=== PATIENT | male | born 1980 | race Caucasian/White ===

== ENCOUNTER 2018-04-16 21:30 | Emergency (ER) | payer BC ==
--- NOTE | 2018-04-16 21:38 | PDOC ---
History of Present Illness - General History Source: Patient Exam Limitations: No Limitations - History of Present Illness Initial Comments: 04/16/18 21:58 The patient is a 37 year old male with past medical history of GERD presents to the emergency department with nausea, vomiting and headache. The patient reports he was at work yesterday, around late morning he started to feel nauseous, reports having a cup of soup at 5:00 PM. An hour later the patient started to vomit. The patient reports since then hes been vomiting constantly, reports drinking pedialyte and eating cracker, which he would vomit within the hour. The patient reports taking zofran but states he was unable to keep it down. The patient reports last episode of nonbloody nonbilious clear vomiting was about an hour prior to the ED. The patient reports associated symptoms of headache and diaphoresis. The patient reports about 5-6 years ago he had food poisoning which was treated. 3 year ago the patient had an upper endoscopy done by Dr. Elise and was diagnosed with GERD. Patient denies taking any medication , denies any further symptoms of GERD, after losing 30 pounds. Denies diarrhea or constipation. Denies fever, chills or coughing. Denies chest pain, sob. Denies any sick contact or recent travel. Denies having any unusual food out of the normal routine. Allergies: NKDA, seasonal allergies. Social history: None reported Dr. Kiara Castaneda <Apple Riley - Last Filed: 04/16/18 22:07> <Tracey Tejeda - Last Filed: 04/17/18 00:55> - General Chief Complaint: Nausea/Vomiting Stated Complaint: NAUSEA/VOMITING Past History <Apple Riley - Last Filed: 04/16/18 22:07> - Past Medical History Anemia: No Asthma: No Cancer: No Cardiac Disorders: No CVA: No COPD: No CHF: No Dementia: No Diabetes: No GI Disorders: Yes (DYSPHAGIA) Disorders: No HTN: No Hypercholesterolemia: No Liver Disease: No Seizures: No Thyroid Disease: No - Surgical History Abdominal Surgery: No Appendectomy: No Cardiac Surgery: No Cholecystectomy: No Lung Surgery: No Neurologic Surgery: No Orthopedic Surgery: Yes (FX LEFT ANKLE WITH SCREWS AND PLATE) - Suicide/Smoking/Psychosocial Hx Smoking History: Never smoked Have you smoked in the past 12 months: No Hx Alcohol Use: No Drug/Substance Use Hx: No Substance Use Type: None Hx Substance Use Treatment: No <Tracey Tejeda Yoli - Last Filed: 04/17/18 00:55> - Past Medical History Allergies/Adverse Reactions: Allergies Allergy/AdvReac Type Severity Reaction Status Date / Time No Known Allergies Allergy Verified 01/22/15 14:21 Home Medications: Ambulatory Orders NK [No Known Home Medication] 04/16/18 Review of Systems - Review of Systems Able to Perform ROS?: Yes Comments:: 04/16/18 22:03 CONSTITUTIONAL: (+) unusual sweating. Absent: fever, no chills, no fatigue EYES: Absent: visual changes ENT: Absent: ear pain, no sore throat CARDIOVASCULAR: Absent: chest pain, no palpitations RESPIRATORY: Absent: cough, no SOB GI: (+) Nausea and multiple episodes of vomiting. Absent: abdominal pain, no constipation, no diarrhea GENITOURINARY: Absent: dysuria, no frequency, no hematuria MUSKULOSKELETAL: Absent: back pain, no arthralgia, no myalgia SKIN: Absent: rash NEURO: (+) headache <Apple Riley - Last Filed: 04/16/18 22:07> *Physical Exam - Vital Signs Last Vital Signs Temp Pulse Resp BP Pulse Ox 98.7 F 94 H 16 137/92 97 04/16/18 21:33 04/16/18 21:33 04/16/18 21:33 04/16/18 21:33 04/16/18 21:33 - Physical Exam Comments: 04/16/18 22:03 GENERAL: The patient is awake, alert, and fully oriented, in no acute distress. HEAD: Normal with no signs of trauma. EYES: Pupils equal, round and reactive to light, extraocular movements intact, sclera anicteric, conjunctiva clear with no pallor. ENT: Ears normal, nares patent, oropharynx clear without exudates. Dry mucous membranes NECK: Normal range of motion, supple without lymphadenopathy, JVD, or masses. LUNGS: Breath sounds equal, clear to auscultation bilaterally. No wheeze/ crackles. HEART: Regular rate and rhythm, normal S1 and S2 without murmur or rub. ABDOMEN: (+) Minimal epigastric tenderness. Soft/nondistended. BS wnl. No guarding or rebound. No palpable masses. No hepatosplenomegaly. EXTREMITIES: Normal range of motion, no edema. No clubbing or cyanosis. No cords, erythema, or tenderness. NEUROLOGICAL: Cranial nerves II through XII grossly intact. Normal speech, normal gait. PSYCH: Normal mood, normal affect. SKIN: Mildly diaphoretic. Warm, Dry, normal turgor, no rashes or lesions noted. 04/16/18 22:08 <Apple Riley - Last Filed: 04/16/18 22:07> ED Treatment Course - LABORATORY CBC & Chemistry Diagram: 04/16/18 21:51 04/16/18 21:51 - Medications Given in the ED: ED Medications Discontinued Medications Generic Name Dose Route Start Last Admin Trade Name Freq PRN Reason Stop Dose Admin Ondansetron HCl 4 mg 04/16/18 21:49 04/16/18 21:50 Zofran Injection IVPUSH 04/16/18 21:50 4 mg ONCE ONE Administration <Apple Riley - Last Filed: 04/16/18 22:07> - LABORATORY CBC & Chemistry Diagram: 04/16/18 21:51 04/16/18 21:51 <Tracey Tejeda - Last Filed: 04/17/18 00:55> Medical Decision Making - Medical Decision Making Laboratory evaluation notable for evidence of hemoconcentration/dehydration with hemoglobin/hematocrit markedly increased and prerenal azotemia (BUN 19/ creatinine 1.0). Patient received 2 L of normal saline IV total along with 4 mg of Zofran IV. He also received 30 mg Toradol IV for headache Patient's nausea resolved and headache pain improved. Patient drank approximately 6 ounces of water without nausea/vomiting. Patient was discharged with instructions to maintain clear liquid diet and advance to solid foods very cautiously. The patient already has Zofran ODT at home which he can use as needed for recurrent nausea. He should return to the emergency room if he has recurrent vomiting or develops fever/severe abdominal pain. He is been advised to follow-up with his general doctor within the next 5 days, especially in light of his markedly elevated hemoglobin/hematocrit. Was explained to the patient that this could be totally caused by his loss of fluids, however polycythemia should be ruled out by follow-up laboratory evaluation. <Tracey Tejeda - Last Filed: 04/17/18 00:55> *DC/Admit/Observation/Transfer <Apple Riley - Last Filed: 04/16/18 22:07> <Tracey Tejeda - Last Filed: 04/17/18 00:55> Diagnosis at time of Disposition: Gastroenteritis - Discharge Dispostion Disposition: HOME Condition at time of disposition: Stable - Referrals Referrals: Kiara Castaneda MD [Primary Care Provider] - - Patient Instructions Printed Discharge Instructions: DI for Vomiting -- Adult Additional Instructions: clear liquids, advance diet cautiously Can use Zofran ODT as needed for recurrent nausea Return to ER if you have persistent vomiting/fever/abdominal pain followup with Dr Castaneda within 3-4 days - Post Discharge Activity
[2018-04-16 21:39] VITALS: BP 137/92; PULSE 94; TEMP 98.7; BMI 39.3
[2018-04-16] MEDS ORDERED: ONDANSETRON 4 MG/2 ML VIAL IVPUSH ONE (21:49)
[2018-04-16] MEDS ORDERED: ONDANSETRON 4 MG/2 ML VIAL ONE (21:49)
[2018-04-16 22:02] LABS: EOS % 0.8 % (0-4.5)
[2018-04-16 22:09] LABS: BASO % 0.5 % (0-2.0); HEMATOCRIT 58.4 % (35.4-49); LYMPH % 17.1 % (8-40); MCHC 34.2 g/dl (32.0-35.9); MEAN PLT VOLUME 9.3 fl (7.5-11.1); MONO % 4.7 % (3.8-10.2); NEUT % 76.9 % (42.8-82.8); PLATELET COUNT 248 K/MM3 (134-434); RBC 6.87 M/mm3 (4.00-5.60); RDW 12.1 % (11.9-15.9)
[2018-04-16] MEDS ORDERED: KETOROLAC TROMETHAMINE 30 MG/1 ML VIAL IVPUSH ONE (22:15)
[2018-04-16 22:18] LABS: ALBUMIN 5.1 g/dl (3.5-5.0); ALK PHOS 42 U/L (32-92); ANION GAP 5 (8-16); BILIRUBIN,TOTAL 3.3 mg/dl (0.2-1.0); BLOOD UREA NITROGEN 19 mg/dl (7-18); CHLORIDE 106 mmol/L (98-107); CO2 24 mmol/L (22-28); GLUCOSE,RANDOM 112 mg/dl (74-106); SGOT/AST 19 U/L (10-42); SGPT/ALT 24 U/L (10-40); SODIUM 135 mmol/L (136-145); TOT PROT 8.3 g/dl (6.4-8.3)
[2018-04-16] MEDS ORDERED: KETOROLAC TROMETHAMINE 30 MG/1 ML VIAL ONE (22:18)
[2018-04-16] MEDS ORDERED: SODIUM CHLORIDE 1,000 ML IV STA (22:44)
[2018-04-16 23:07] LABS: LIPASE 186 U/L (73-393)
== END 2018-04-16 23:40 | disposition home or self-care (01) ==
LOC: FER 21:30
PROC: 3E0333Z Introduction of Anti-inflammatory into Peripheral Vein, Percutaneous Approach (ICD-10-PCS; principal; 2018-04-16)
PROC: 3E033GC Introduction of Other Therapeutic Substance into Peripheral Vein, Percutaneous Approach (ICD-10-PCS; 2018-04-16)
PROC: 3E0337Z Introduction of Electrolytic and Water Balance Substance into Peripheral Vein, Percutaneous Approach (ICD-10-PCS; 2018-04-16)
DX: K52.9 Noninfective gastroenteritis and colitis, unspecified (principal)
CPT/HCPCS: 36415; 80053; 83690; 85025; 99283-25; J7030

== ENCOUNTER 2020-06-25 22:51 | Emergency (ER) | payer BC, OTHER ==
[2020-06-25 22:56] VITALS: BP 134/92; PULSE 89; TEMP 98.5; BMI 38.0
--- NOTE | 2020-06-25 23:16 | PDOC ---
Documentation entered by Apple Riley SCRIBE, acting as scribe for Sheila Harding MD. Sheila Harding MD: This documentation has been prepared by the cecilyibe, Apple Riley SCRIBE, under my direction and personally reviewed by me in its entirety. I confirm that the documentation accurately reflects all work, treatment, procedures, and medical decision making performed by me. History of Present Illness - General Chief Complaint: Laceration Stated Complaint: LACERATION Time Seen by Provider: 06/25/20 22:52 History Source: Patient Exam Limitations: No Limitations - History of Present Illness Initial Comments: 06/25/20 22:57 The patient is a 40-year-old male who presents to the emergency department with a right-hand laceration. The patient reports he was installing new cameras at work, he went to grab a stainless steel band with sharp corners when he sustained a laceration to the right pinky. The patient reports his last tetanus was within 5 years. 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 MEDICATIONS: reviewed ALLERGIES: As per nursing notes PCP: Dr. Meghan Maurice. Review of system: General: No fevers or chills, no weakness, no weight loss HEENT: No change in vision. No sore throat. No ear pain Cardiovascular: No chest pain or shortness of breath Respiratory: No cough, or wheezing. Gastrointestinal: no nausea, vomiting, diarrhea or constipation, No rectal bleeding Genitourinary: No dysuria, hematuria, or frequency Musculoskeletal: No joint or muscle pain or swelling Neurologic: No headache, vertigo, dizziness or loss of consciousness Psychiatric: nor depression Skin: +laceration to right pinky. No rashes or easy bruising Endocrine: no increased thirst or abnormal weight change Allergic: no skin or latex allergy All other systems reviewed and normal Physical exam: GENERAL: The patient is awake, alert, and fully oriented, in no acute distress. HEAD: Normal with no signs of trauma. EYES: Pupils equal, round and reactive to light, extraocular movements intact, sclera anicteric, conjunctiva clear. EXTREMITIES: Normal range of motion, no edema. NEUROLOGICAL: Normal speech, normal gait. PSYCH: Normal mood, normal affect. SKIN: +Right pinky: one cm laceration to the palmar aspect of the distal phalanx of the right pinkly, actively bleeding. There is a second superficial laceration/abrasion of the lateral surface of the same finger with no bleeding. warm, Dry, normal turgor, no rashes or lesions noted. 06/25/20 23:10 Procedure note: Laceration repair: Laceration was anesthetized with 1% lidocaine no epinephrine via local infiltration Laceration was sutured closed with a total of 4 sutures of 5-0 Ethilon patient tolerated well Negative superficial laceration was closed with Dermabond patient tolerated well. Patient's tetanus is up-to-date Patient discharged well follow-up for suture removal Past History - Medical History Allergies/Adverse Reactions: Allergies Allergy/AdvReac Type Severity Reaction Status Date / Time No Known Allergies Allergy Verified 06/25/20 22:53 Home Medications: Ambulatory Orders NK [No Known Home Medication] 06/25/20 Anemia: No Asthma: No Cancer: No Cardiac Disorders: No CVA: No COPD: No CHF: No Dementia: No Diabetes: No GI Disorders: Yes (DYSPHAGIA) Disorders: No HTN: No Hypercholesterolemia: No Liver Disease: No Seizures: No Thyroid Disease: No - Surgical History Abdominal Surgery: No Appendectomy: No Cardiac Surgery: No Cholecystectomy: No Lung Surgery: No Neurologic Surgery: No Orthopedic Surgery: Yes (FX LEFT ANKLE WITH SCREWS AND PLATE) - Psycho-Social/Smoking History Smoking History: Never smoked Have you smoked in the past 12 months: No Discharge - Discharge Information Problems reviewed: Yes Clinical Impression/Diagnosis: Finger laceration Qualifiers: Encounter type: initial encounter Damage to nail status: with damage Foreign body presence: without foreign body Laterality: right Condition: Stable Disposition: HOME - Admission No - Follow up/Referral - Patient Discharge Instructions Additional Instructions: Tylenol or Motrin as needed for pain. Clean the laceration with some peroxide once a day and reapply bacitracin and a Band-Aid. Suture removal in 1 week. Return to the emergency department immediately with ANY new, persistent or worsening symptoms. Continue any medications as previously prescribed by your physician. You should follow up with your primary doctor as soon as possible regarding today's emergency department visit. . Please make sure your doctor reviews the results of your emergency evaluation. Thank you for coming to the Emergency Department today for your care. It was a pleasure to see you today. Please note that your evaluation is INCOMPLETE until you follow-up with your doctor. - Post Discharge Activity
== END 2020-06-25 23:32 | disposition home or self-care (01) ==
LOC: FER 22:51
DX: S61.216A Laceration without foreign body of right little finger without damage to nail, initial encounter (principal)
CPT/HCPCS: 99282-25

== ENCOUNTER 2020-07-02 08:42 | Emergency (ER) | payer BC, OTHER ==
[2020-07-02 08:56] VITALS: BP 121/87; PULSE 81; TEMP 98.2; BMI 38.0
--- NOTE | 2020-07-02 08:56 | PDOC ---
Rapid Medical Evaluation Chief Complaint: Suture/Staple Removal(Here) Time Seen by Provider: 07/02/20 08:54 Medical Evaluation: Allergies Allergy/AdvReac Type Severity Reaction Status Date / Time No Known Allergies Allergy Verified 07/02/20 08:54 07/02/20 08:55 I have performed a brief in-person evaluation of this patient. The patient presents with a chief complaint of:suture removal to R pinky (had 4 sutures placed 06/25) Pertinent physical exam findings:NAD I have ordered the following:nothing The patient will proceed to the ED for further evaluation. Discharge Disposition - Diagnosis Visit for suture removal - Referrals - Patient Instructions - Post Discharge Activity
--- NOTE | 2020-07-02 09:12 | PDOC ---
Suture Removal/Wound Check HPI - History of Present Illness Chief Complaint: Suture/Staple Removal(Here) Stated Complaint: Suture/Staple Removal(Here) Time Seen by Provider: 07/02/20 08:54 History Source: Yes: Patient Exam Limitations: Yes: No Limitations Treated at: [facility] ED - Previous ED Treatment Type of procedure performed on last visit: Yes: Laceration Repair Past History - Travel History Traveled outside of the country in the last 30 days: No Close contact w/someone who was outside of country & ill: No - Medical History Allergies/Adverse Reactions: Allergies Allergy/AdvReac Type Severity Reaction Status Date / Time No Known Allergies Allergy Verified 07/02/20 08:54 Home Medications: Ambulatory Orders NK [No Known Home Medication] 06/25/20 Anemia: No Asthma: No Cancer: No Cardiac Disorders: No CVA: No COPD: No CHF: No Dementia: No Diabetes: No GI Disorders: Yes (DYSPHAGIA) Disorders: No HTN: No Hypercholesterolemia: No Liver Disease: No Seizures: No Thyroid Disease: No - Surgical History Abdominal Surgery: No Appendectomy: No Cardiac Surgery: No Cholecystectomy: No Lung Surgery: No Neurologic Surgery: No Orthopedic Surgery: Yes (FX LEFT ANKLE WITH SCREWS AND PLATE) - Immunization History Immunization Up to Date: Yes - Psycho-Social/Smoking History Smoking History: Never smoked Have you smoked in the past 12 months: No - Substance Abuse Hx (Audit-C & DAST Scrn) How often the patient has a drink containing alcohol: Never Score: In Men: 4 or > Positive; In Women: 3 or > Positive: 0 Screen Result (Pos requires Nsg. Audit-10AR): Negative In the last yr the pt used illegal drug/Rx for NonMed reason: No Score: Yes response is considered Positive: 0 Screen Result (Positive result requires Nsg. DAST-10): Negative Suture Removal/Wound Check PE - Physical Exam Laceration/Wound Check Symptoms: reports: Improved. denies: Fever, Chills, Redness Current Severity Level: None Maximum Severity Level: None Pain Localization: None Location of Laceration/Wound: right: Finger (Fifth finger. 4 simple interrupted sutures intact. Wound is well approximated with no signs of secondary infection.) *Review of Systems - Review of Systems Able to Perform ROS?: Yes Constitutional: No: Chills, Fever, Weakness Musculoskeletal: No: Joint Swelling, Muscle Pain, Joint Stiffness Integumentary: No: Erythema, Rash *Physical Exam - Vital Signs Last Vital Signs Temp Pulse Resp BP Pulse Ox 98.2 F 81 20 121/87 100 07/02/20 08:55 07/02/20 08:55 07/02/20 08:55 07/02/20 08:55 07/02/20 08:55 - Physical Exam General Appearance: Yes: Nourished, Appropriately Dressed. No: Apparent Distress Musculoskeletal: positive: Normal Inspection, Other (Full range of motion to the right fifth finger.) Medical Decision Making - Medical Decision Making 07/02/20 11:01 Patient is a 40-year-old male no past medical history presents to the ER for suture removal to his right fourth finger. He states he had no problem with healing and denies any pus/purulent discharge from the finger or fever. A/P: Need for suture removal On exam 4 simple interrupted sutures are placed in the right fifth finger. Well approximated well-healed. Sutures removed at this time. Wound instructions given. Discharge home with return precautions. I discussed the physical exam findings, ancillary test results and final diagnoses with the patient. I answered all of the patient's questions. The patient was satisfied with the care received and felt comfortable with the discharge plan and treatment plan. The Patient agrees to follow up with the primary care physician/specialist within 24-72 hours. Return precautions were given. Discharge - Discharge Information Problems reviewed: Yes Clinical Impression/Diagnosis: Visit for suture removal Condition: Stable Disposition: HOME - Admission No - Follow up/Referral Referrals: [facility] [place] [facility] [place] [Provider Group] - Patient Discharge Instructions Patient Printed Discharge Instructions: DI for Suture Removal Additional Instructions: You had your sutures/mindi removed today. Please use bacitracin on the site for the next week. Avoid soaking the area with water for 1 more week as to what the wound fully heal. Follow-up with her primary care doctor as needed Return to the emergency department if you develop fevers, drainage from the site, increased pain, or have any changes in your symptoms. - Post Discharge Activity
== END 2020-07-02 09:23 | disposition home or self-care (01) ==
LOC: JERFT 08:42
DX: Z48.02 Encounter for removal of sutures (principal)
CPT/HCPCS: 99281-25